=== PATIENT | female | born 1980 | race American Indian/Alaskan Native ===

== ENCOUNTER 2018-09-19 21:55 | Emergency (ER) | payer OTHER, BC ==
[2018-09-19 22:04] VITALS: BP 153/93
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
== END 2018-09-20 00:52 | disposition home or self-care (01) ==
LOC: ED 21:55
DX: S16.1XXA Strain of muscle, fascia and tendon at neck level, initial encounter (principal); M25.511 Pain in right shoulder; V89.2XXA Person injured in unspecified motor-vehicle accident, traffic, initial encounter; Y93.89 Activity, other specified; Y92.488 Other paved roadways as the place of occurrence of the external cause; Y99.8 Other external cause status
CPT/HCPCS: 72040; 99283